=== PATIENT | male | born 1935 | race Two or more races ===

== ENCOUNTER 2018-10-23 09:45 | Outpatient (CLI) | payer OTHER ==
[~2018-10-23] VITALS: Ht 152.4 cm; Wt 99.8 kg
== END 2018-10-23 10:00 | disposition home or self-care (01) ==
LOC: OFIC 805 09:45
DX: H90.3 Sensorineural hearing loss, bilateral (principal); H60.8X3 Other otitis externa, bilateral; H61.23 Impacted cerumen, bilateral

== ENCOUNTER 2020-09-02 06:32 | Inpatient (IN) | payer OTHER ==
[~2020-09-02] VITALS: Ht 175.3 cm; Wt 96.6 kg
[2020-09-02] MEDS ORDERED: AMLODIPINE-OLM1 EAC2 (06:51)
[2020-09-02] MEDS ORDERED: ZYLOPRIM100 M1 (06:51)
[2020-09-02] MEDS ORDERED: ZESTRIL5 MG (06:51)
[2020-09-02] MEDS ORDERED: PRAVASTATIN SOD10 MG (06:51)
[2020-09-04] MEDS ORDERED: AMLODIPINE BESY10 MG (07:59)
[2020-09-04] MEDS ORDERED: LISINOPRIL-HCT1 EACH (08:00)
[2020-09-04] MEDS ORDERED: DONEPEZIL HCL5 MG (08:00)
== END 2020-09-05 10:47 | disposition home or self-care (01) | DRG 312 ==
LOC: ER 06:32 → MEDI 12:13
PROVIDERS: ADMIT Internal Medicine; ATTEND Internal Medicine
PROC: 4A12X4Z Monitoring of Cardiac Electrical Activity, External Approach (ICD-10-PCS; principal; 2020-09-02)
DX: R55 Syncope and collapse (principal); R00.1 Bradycardia, unspecified; R39.16 Straining to void; R39.198 Other difficulties with micturition; I10 Essential (primary) hypertension; E78.5 Hyperlipidemia, unspecified; Z20.822 Contact with and (suspected) exposure to COVID-19